=== PATIENT | male | born 1995 | race Caucasian/White ===

== ENCOUNTER 2022-10-22 10:02 | Day surgery (SDC) | payer BC, MEDICAID ==
[~2022-10-22 10:02] MED LIST: Acetaminophen 1,000 MG in Premix Bag 1 BAG IV SCH; Albuterol 0.083% 2.5 MG/3 ML Neb Soln NEB PRN; Bupivacaine 0.5% 30 ML SDV ONE; HYDROmorphone 1 MG/ML Syringe IVPUSH PRN; Lactated Ringers 1,000 ML IV SCH; Metoclopramide 10 MG/2 ML SDV IVPUSH PRN; Morphine 2 MG/ML SYRINGE IVPUSH PRN; Naloxone 0.4 MG/ML SDV IVPUSH PRN; Ondansetron 4 MG/2 ML SDV IVPUSH PRN; Pregabalin 75 MG Cap PO SCH; cefOXitin 2 GM in Sodium Chloride 0.9% 50 ML IV SCH; droPERidol 5 MG/2 ML SDV IVPUSH PRN; fentaNYL 50 MCG/ML SDV IVPUSH PRN
[2022-10-22] MEDS ORDERED: Bupivacaine 25%/EPINEPHrine/PF 30 ML ONE (11:24)
[2022-10-22] MEDS ORDERED: Ropivacaine 0.5% 5 MG/ML 30 ML SDV ONE (11:24)
[2022-10-22] MEDS ORDERED: Ondansetron 4 MG/2 ML SDV ONE (11:33)
[2022-10-22] MEDS ORDERED: Dexamethasone 4 MG/ML 5 ML MDV ONE (11:33)
[2022-10-22] MEDS ORDERED: Ketorolac 30 MG/ML SDV ONE (11:33)
[2022-10-22] MEDS ORDERED: Sugammadex Sodium 200 MG/2 ML VIAL ONE (11:33)
[2022-10-22] MEDS ORDERED: Propofol 200 MG/20 ML SDV ONE (11:33)
[2022-10-22] MEDS ORDERED: Rocuronium Bromide 50 MG/5 ML Syringe ONE (11:33)
[2022-10-22] MEDS ORDERED: Lidocaine 2% 5 ML SDV ONE (11:33)
[2022-10-22] MEDS ORDERED: fentaNYL 100 MCG/2 ML SDV ONE ×2 (11:34→12:23)
[2022-10-22] MEDS ORDERED: cefOXitin 1 GM Vial ONE (12:17)
== END 2022-10-22 14:53 | disposition home or self-care (01) ==
LOC: MW.SDS 10:02
PROVIDERS: ATTEND Surgery
DX: K35.33 Acute appendicitis with perforation, localized peritonitis, and gangrene, with abscess (principal); K66.0 Peritoneal adhesions (postprocedural) (postinfection); J45.909 Unspecified asthma, uncomplicated; K64.9 Unspecified hemorrhoids; E66.9 Obesity, unspecified; Z87.891 Personal history of nicotine dependence; F12.90 Cannabis use, unspecified, uncomplicated; Z87.19 Personal history of other diseases of the digestive system; Z68.41 Body mass index [BMI] 40.0-44.9, adult
CPT/HCPCS: 44970; A9270; J0694; J1100; J1885; J2405; J2704; J2795; J3010; J3490; J7030; J7120; 00840; 64488

== ENCOUNTER 2022-12-19 09:58 | Day surgery (SDC) | payer MEDICAID ==
[~2022-12-19 09:58] MED LIST changes: -Acetaminophen 1,000 MG in Premix Bag 1 BAG IV SCH; -Albuterol 0.083% 2.5 MG/3 ML Neb Soln NEB PRN; -Bupivacaine 0.5% 30 ML SDV ONE; -HYDROmorphone 1 MG/ML Syringe IVPUSH PRN; -Metoclopramide 10 MG/2 ML SDV IVPUSH PRN; -Morphine 2 MG/ML SYRINGE IVPUSH PRN; -Naloxone 0.4 MG/ML SDV IVPUSH PRN; -Ondansetron 4 MG/2 ML SDV IVPUSH PRN; -Pregabalin 75 MG Cap PO SCH; -cefOXitin 2 GM in Sodium Chloride 0.9% 50 ML IV SCH; -droPERidol 5 MG/2 ML SDV IVPUSH PRN; -fentaNYL 50 MCG/ML SDV IVPUSH PRN
[2022-12-19] MEDS ORDERED: fentaNYL 100 MCG/2 ML SDV ONE ×2 (10:49→11:35)
[2022-12-19] MEDS ORDERED: Propofol 200 MG/20 ML SDV ONE ×4 (10:49→11:56)
[2022-12-19] MEDS ORDERED: Midazolam 1 MG/ML 2 ML SDV ONE ×2 (10:49→11:35)
[2022-12-19] MEDS ORDERED: Ketorolac 30 MG/ML SDV ONE (12:13)
== END 2022-12-19 13:05 | disposition home or self-care (01) ==
LOC: MW.SDS 09:58
PROVIDERS: ATTEND Surgery
DX: D12.6 Benign neoplasm of colon, unspecified (principal); K57.30 Diverticulosis of large intestine without perforation or abscess without bleeding; K64.8 Other hemorrhoids; F32.A Depression, unspecified; J45.909 Unspecified asthma, uncomplicated; E66.9 Obesity, unspecified; Z68.41 Body mass index [BMI] 40.0-44.9, adult; Z87.891 Personal history of nicotine dependence
CPT/HCPCS: 45380; J2250; J2704; J3010; J7120; J1885